=== PATIENT | male | born 1980 | race African-American/Black ===

== ENCOUNTER 2023-02-02 17:33 | Emergency (ER) | payer SELFPAY ==
[~2023-02-02] VITALS: Ht 190.5 cm; Wt 112.9 kg
[2023-02-02] MEDS ORDERED: predniSONE 20 MG TABLET ONE ×2 (19:24→19:25)
[2023-02-02] MEDS ORDERED: IPRATROPIUM NEB FS 0.5 MG/2.5 ML AMPUL.NEB NEB ONE (19:30)
[2023-02-02] MEDS ORDERED: ALBUTEROL FS 2.5 MG/3 ML VIAL.NEB NEB ONE (19:30)
[2023-02-02] MEDS ORDERED: predniSONE 20 MG TABLET PO ONE (19:30)
[2023-02-02 19:32] VITALS: O2SAT 95
[2023-02-02] MEDS ORDERED: ALBUTEROL FS 2.5 MG/3 ML VIAL.NEB ONE (19:33)
[2023-02-02] MEDS ORDERED: IPRATROPIUM NEB FS 0.5 MG/2.5 ML AMPUL.NEB ONE (19:33)
[2023-02-02 19:47] VITALS: O2SAT 100; O2SAT 98
[2023-02-02] MEDS ORDERED: PRED50TA PO ×2 (20:21→20:38)
[2023-02-02] MEDS ORDERED: ALBU8.5H8 INH ×2 (20:21→20:38)
[2023-02-02] MEDS ORDERED: DIPH25CA83 PO ×2 (20:21→20:38)
[2023-02-03 00:03] VITALS: BP 132/80; TEMP 98; O2SAT 98
== END 2023-02-02 22:20 | disposition home or self-care (01) ==
LOC: ER 17:34
DX: J98.01 Acute bronchospasm (principal); Z60.2 Problems related to living alone
CPT/HCPCS: 99285; 71045; 94640; J7512